=== PATIENT | male | born 1965 | race Caucasian/White ===

== ENCOUNTER 2018-02-09 16:18 | Emergency (ER) | payer MEDICAID ==
[2018-02-09 16:30] VITALS: O2SAT 99
[2018-02-09 17:03] LABS: BASO # 0.1 K/uL (0.0-0.2); BASO % 0.8 % (0.0-2.0); EOS # 0.3 K/uL (0.0-0.7); EOS % 3.7 % (0.0-4.0); HEMOGLOBIN 14.5 g/dL (12.0-18.0); LYMPH % 21.8 % (20.0-40.0); MEAN CORPUSCULAR HEMOGLOBIN 31.7 pg (27.0-31.0); MEAN CORPUSCULAR HGB CONC 34.8 g/dL (33.0-37.0); MEAN PLATELET VOLUME 8.7 fL (7.2-11.7); MONO # 0.6 K/uL (0.0-0.8); NEUT # 6.3 K/uL (1.8-7.0); NEUT % 67.7 % (50.0-75.0); RBC 4.58 Mil/uL (4.40-5.90); RED CELL DISTRIBUTION WIDTH 12.9 % (11.5-14.5); WHITE BLOOD COUNT 9.3 K/uL (4.8-10.8)
[2018-02-09 17:10] LABS: URINE BILIRUBIN NEGATIVE (NEGATIVE); URINE BLOOD NEGATIVE (NEGATIVE); URINE CLARITY Clear (Clear); URINE COLOR Yellow (YELLOW); URINE GLUCOSE (UA) NORMAL (Normal); URINE LEUKOCYTE ESTERASE NEG Leu/uL (Negative); URINE PROTEIN NEGATIVE (NEGATIVE); URINE UROBILINOGEN NORMAL mg/dL (0.2-1.0)
[2018-02-09 17:18] LABS: ALB/GLOB RATIO 1.4 (1.0-2.1); ALBUMIN 4.3 g/dL (3.5-5.0); ALT/SGPT 20 U/L (21-72); AST/SGOT 27 U/L (17-59); BLOOD UREA NITROGEN 23 mg/dL (9-20); CALCIUM 9.1 mg/dl (8.6-10.4); GFR NON-AFRICAN AMERICAN > 60
[2018-02-09 17:27] LABS: BARBITURATES, UR NEGATIVE (NEGATIVE); BENZODIAZEPINES, UR POSITIVE (NEGATIVE); OPIATES, UR NEGATIVE (NEGATIVE); PHENCYCLIDINE, UR NEGATIVE (NEGATIVE)
--- NOTE | 2018-02-09 17:51 | C.PDOC ---
History Of Present Illness Patient presents to ED requesting alcohol detox. He states his last drink was yesterday, is a daily drinker typically with meals. He denies drug use, SI/HI or physical complaints at this time. Time Seen by Provider: 02/09/18 16:31 Chief Complaint (Nursing): Substance Abuse History Per: Patient History/Exam Limitations: no limitations Onset/Duration Of Symptoms: Persistent Severity: Mild Past Medical History Reviewed: Historical Data, Nursing Documentation, Vital Signs Vital Signs: Last Vital Signs Temp 98.5 F 02/09/18 16:27 Pulse 67 02/09/18 16:27 Resp 19 02/09/18 16:27 BP 122/78 02/09/18 16:27 Pulse Ox 99 02/09/18 16:27 - Medical History PMH: Anxiety, Depression, HTN Family History: States: No Known Family Hx - Social History Hx Alcohol Use: Yes Hx Substance Use: No - Immunization History Hx Tetanus Toxoid Vaccination: No Hx Influenza Vaccination: Yes Hx Pneumococcal Vaccination: No Review Of Systems Except As Marked, All Systems Reviewed And Found Negative. Constitutional: Negative for: Fever Cardiovascular: Negative for: Chest Pain, Orthopnea Respiratory: Negative for: Shortness of Breath Gastrointestinal: Negative for: Nausea, Vomiting, Abdominal Pain, Diarrhea Psych: Positive for: Other (alcohol dependence). Negative for: Psychosis, Suicidal ideation, Withdrawal Physical Exam - Physical Exam Appears: Well, Non-toxic, No Acute Distress Skin: Normal Color, Warm, Dry Head: Atraumatic, Normacephalic Eye(s): bilateral: Normal Inspection, PERRL, EOMI Oral Mucosa: Moist Cardiovascular: Rhythm Regular Respiratory: Normal Breath Sounds, No Rales, No Rhonchi, No Wheezing Gastrointestinal/Abdominal: Normal Exam, Bowel Sounds, Soft, No Tenderness Extremity: Normal ROM, No Deformity Extremity: Bilateral: Atraumatic, Normal Color And Temperature, Normal ROM Neurological/Psych: Oriented x3, Normal Speech, Normal Cognition, Other (no tremors) ED Course And Treatment - Laboratory Results Result Diagrams: 02/09/18 16:56 02/09/18 16:56 O2 Sat by Pulse Oximetry: 99 (RA) Pulse Ox Interpretation: Normal Progress Note: Blood work, UA, UDS ordered and reviewed. 5:45pm- Patient medically cleared. 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 Patient instructed to follow up outpatient as indicated by crisis. He understa nds he should return to ED if he has any concerning symptoms.) Disposition Counseled Patient/Family Regarding: Studies Performed, Diagnosis, Need For Followup - Disposition Referrals: [facility] [Outside] Disposition: HOME/ ROUTINE Disposition Time: 18:15 Condition: STABLE Instructions: Alcohol Abuse and Alcoholism (DC) Forms: [employer] (Slovak) Print Language: FAROESE - Clinical Impression Clinical Impression: Alcohol abuse
[2018-02-09 18:29] VITALS: BP 120/77; PULSE 68; RESP 18; TEMP 98.4
== END 2018-02-09 18:28 | disposition home or self-care (01) ==
LOC: C.ER 16:18
DX: F10.10 Alcohol abuse, uncomplicated (principal); Y90.9 Presence of alcohol in blood, level not specified

== ENCOUNTER 2018-03-13 15:11 | Inpatient (IN) | payer MEDICAID ==
[2018-03-13 15:29] VITALS: BMI 23.3
[2018-03-13 16:22] LABS: BASO % 0.7 % (0.0-2.0); EOS # 0.1 K/uL (0.0-0.7); EOS % 1.6 % (0.0-4.0); HEMOGLOBIN 14.1 g/dL (12.0-18.0); LYMPH # 1.8 K/uL (1.0-4.3); LYMPH % 25.9 % (20.0-40.0); MEAN CORPUSCULAR HEMOGLOBIN 30.6 pg (27.0-31.0); MEAN CORPUSCULAR HGB CONC 34.5 g/dL (33.0-37.0); MEAN PLATELET VOLUME 8.9 fL (7.2-11.7); MONO # 0.4 K/uL (0.0-0.8); NEUT # 4.7 K/uL (1.8-7.0); NEUT % 66.8 % (50.0-75.0); NRBC % 0.1 % (0.0-2.0); RBC 4.62 Mil/uL (4.40-5.90); RED CELL DISTRIBUTION WIDTH 13.4 % (11.5-14.5)
--- NOTE | 2018-03-13 16:24 | C.PDOC ---
History Of Present Illness 52 y/o male presents to ED requesting detox from ETOH. Patient states last drink was yesterday and admits to smoking cigarette 3 daily. Patient denies other substance abuse, SI/HI, hallucinations or any other complaints at this time. Time Seen by Provider: 03/13/18 16:07 Chief Complaint (Nursing): Substance Abuse History Per: Patient History/Exam Limitations: no limitations Onset/Duration Of Symptoms: Days Current Symptoms Are (Timing): Still Present Suicide/Self Injury Attempted (Context): None Modifying Factor(s): Alcohol Past Medical History Reviewed: Historical Data, Nursing Documentation, Vital Signs Vital Signs: Last Vital Signs Temp 98 F 03/13/18 15:29 Pulse 89 03/13/18 15:29 Resp 18 03/13/18 15:29 BP 145/88 03/13/18 15:29 Pulse Ox 99 03/13/18 15:29 - Medical History PMH: Anxiety, Depression, HTN Surgical History: No Surg Hx Family History: States: No Known Family Hx - Social History Hx Alcohol Use: Yes Hx Substance Use: No - Immunization History Hx Tetanus Toxoid Vaccination: No Hx Influenza Vaccination: Yes Hx Pneumococcal Vaccination: Yes Review Of Systems Constitutional: Negative for: Fever, Chills Cardiovascular: Negative for: Chest Pain Respiratory: Negative for: Cough, Shortness of Breath Gastrointestinal: Negative for: Nausea, Vomiting Psych: Positive for: Other (substance abuse). Negative for: Suicidal ideation Physical Exam - Physical Exam Appears: Non-toxic, No Acute Distress, Other (Mild tremors to hands) Skin: Warm, Dry, No Rash Head: Atraumatic, Normacephalic Eye(s): bilateral: Normal Inspection Oral Mucosa: Moist Neck: Normal ROM, Supple Cardiovascular: Rhythm Regular Respiratory: Normal Breath Sounds, No Rales, No Rhonchi, No Wheezing Gastrointestinal/Abdominal: Soft, No Tenderness, No Guarding, No Rebound Neurological/Psych: Oriented x3, Normal Speech, Normal Cognition ED Course And Treatment - Laboratory Results Result Diagrams: 03/13/18 16:19 03/13/18 16:19 O2 Sat by Pulse Oximetry: 99 (RA) Pulse Ox Interpretation: Normal Medical Decision Making Medical Decision Making: Patient requesting detox from alcohol Labs ordered for medical clearance Labs reviewed with no acute findings. In my clinical judgment patient is medically cleared and stable for admission. PES contacted for evaluation. 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 - Scribe Statement The provider has reviewed the documentation as recorded by the Artemioibe Jaciel Mercer All medical record entries made by the Artemioibnoel were at my direction and personally dictated by me. I have reviewed the chart and agree that the record accurately reflects my personal performance of the history, physical exam, medical decision making, and the department course for this patient. I have also personally directed, reviewed, and agree with the discharge instructions and disposition. Decision To Admit - Pt Status Changed To: Hospital Disposition Of: Inpatient - Admit Certification Admit to Inpatient:: After my assessment, the patient will require hospitalization for at least two midnights. This is because of the severity of symptoms shown, intensity of services needed, and/or the medical risk in this patient being treated as an outpatient. - InPatient: Physician Admission Certification: I certify that this patient requires 2 or more midnights of care for the following reason:: Patient with alcohol use disorder severe and will need detox inpatient - . Bed Request Type: Detox Admitting Physician: Blaine Mansfield Patient Diagnosis: Alcohol abuse
[2018-03-13 16:30] LABS: MEAN CELL VOLUME 88.6 fL (80.0-94.0)
[2018-03-13 16:33] LABS: SQUAMOUS EPITHIAL < 1 /hpf (0-5); URINE BILIRUBIN NEGATIVE (NEGATIVE); URINE BLOOD NEGATIVE (NEGATIVE); URINE CLARITY Clear (Clear); URINE COLOR Yellow (YELLOW); URINE GLUCOSE (UA) NORMAL (Normal); URINE LEUKOCYTE ESTERASE NEG Leu/uL (Negative); URINE PROTEIN NEGATIVE (NEGATIVE)
[2018-03-13 16:49] LABS: ALB/GLOB RATIO 1.5 (1.0-2.1); ALBUMIN 4.4 g/dL (3.5-5.0); ALT/SGPT 19 U/L (21-72); AST/SGOT 20 U/L (17-59); BLOOD UREA NITROGEN 10 mg/dL (9-20); GFR NON-AFRICAN AMERICAN > 60
[2018-03-13 16:59] LABS: BARBITURATES, UR NEGATIVE (NEGATIVE); OPIATES, UR NEGATIVE (NEGATIVE); PHENCYCLIDINE, UR NEGATIVE (NEGATIVE)
[2018-03-13 17:01] LABS: BENZODIAZEPINES, UR POSITIVE (NEGATIVE)
--- NOTE | 2018-03-13 21:09 | PCM.BM ---
<Wanda Bernal - Last Filed: 03/13/18 21:08> Treatment Plan Problems - Problems identified on initial assessmt Potential for alcohol withdrawal Date Initiated: 03/13/18 Time Initiated: 21:08 Assessment reference: NA Status: Active Treatment assets and liabiliti Patient Assests: cooperative, ADL independent, negotiates basic needs, cognitively intact Patient Liabilities: substance abuse (Alcohol), other (homelessness) <Elham Todd - Last Filed: 03/14/18 11:03> Family Contact Family involvement: No known Family/SO - Goals for Treatment Patient goals for treatment: Complete detox and transition to partial care program with residential component. Discharge/Continuing Care - Education Needs Education Needs: Patient Medication, Patient Diagnosis/Disease Process, Patient Coping Skills, Patient Anger Management skills, Patient Placement options, Patient Community resources - Discharge Discharge Criteria: No longer exhibiting s/s of withdrawal, Reduction of target symptoms Discharge to:: Penitentiary - Treatment Team Participation Patient/Family/SO Statement: 03/14/18 11:03 "I wanna go back to the residential at [facility]. They take good care of me there." Discussed with Family/SO: No Was Patient/Family/SO present at Treatment Team Meeting: Yes <Connor Coffey - Last Filed: 03/18/18 09:08> - Diagnosis (1) Alcohol abuse Status: Acute Interventions: 03/15/18 09:07 * Assess 7x/week regarding severity of withdrawal * Educate regarding risks, benefits, side effects and alternatives of medications * Use Motivational Interviewing for abstinence * Use CBT for relapse prevention * Medication management for withdrawal symptoms * Encourage medication assisted treatment *
[2018-03-14] MEDS: Multiple Vitamins Tab PO SCH (09:42)
--- NOTE | 2018-03-14 14:05 | PCM.PSYCH ---
Initial Psychiatric Evaluation - Initial Psychiatric Evaluation Type of Admission: Voluntary Legal Status: Capacity Chief Complaint (in patient's own words): "Need detox" History of Present Illness and Precipitating Events: Patient seen, chart reviewed, cast discussed The patient is a 52-year-old single unemployed male with a child in the mid 20s. The patient currently lives in a intermediate and hasnt worked for 4-5 years and is on welfare. The patient had his first drink at age 12, but it has only become a problem for him in the last 4 years. The patient drinks a pint of vodka per day. When the patient does not drink, he gets the shakes and almost DT-like symptoms, and his longest period of sobriety was a couple months. The patient denies any heroin, cocaine, marijuana or other drug use, and smokes 3 cigarettes a day for about 10 years. The patient went to an inpatient detox and rehab program once before in the late 80s or early 90s. The patient does not attend AA meetings but states that he is in a program with group and individual therapy. The patients father and brother have a history of alcohol abuse. The patient states that he is being treated for depression and anxiety with Sertraline, but denies any current suicidal ideation. Past Psych History: Depression, anxiety Past Medical History: HTN Family Psych History: denies Current Medications: Active Medications Generic Name Dose Route Start Last Admin Trade Name Freq PRN Reason Stop Dose Admin Chlordiazepoxide 25 mg 03/13/18 19:31 03/13/18 21:24 Librium PO 25 mg Q6 PRN Administration alcohol withdrawal Chlordiazepoxide 25 mg 03/14/18 12:00 03/14/18 11:24 Librium PO 03/19/18 11:59 25 mg Q6 NOE Administration Taper Clonidine HCl 0.1 mg 03/13/18 22:30 Catapres PO Q4H PRN Symptoms of alcohol withdrawl Folic Acid 1 mg 03/14/18 10:00 03/14/18 09:42 Folic Acid PO 1 mg DAILY NOE Administration Gabapentin 300 mg 03/14/18 10:00 03/14/18 13:40 Neurontin PO 300 mg TID NOE Administration Hydrochlorothiazide 12.5 mg 03/14/18 10:30 03/14/18 11:21 Microzide PO 12.5 mg DAILY NOE Administration Hydroxyzine HCl 25 mg 03/13/18 19:32 03/13/18 21:24 Atarax PO 25 mg Q6 PRN Administration Anxiety Ibuprofen 400 mg 03/13/18 22:31 Motrin Tab PO Q6 PRN Pain, moderate (4-7) Metoprolol Tartrate 50 mg 03/14/18 10:30 03/14/18 11:20 Lopressor PO 50 mg BID NOE Administration Multivitamins 1 tab 03/14/18 10:00 03/14/18 09:42 Hexavitamin PO 1 tab DAILY NOE Administration Naltrexone HCl 50 mg 03/14/18 10:45 03/14/18 11:21 Revia PO 50 mg DAILY NOE Administration Thiamine HCl 100 mg 03/14/18 10:00 03/14/18 09:43 Vitamin B1 Tab PO 100 mg DAILY NOE Administration Trazodone HCl 50 mg 03/13/18 21:23 03/13/18 21:54 Desyrel PO 50 mg HS PRN Administration Insomnia Past Psychiatric History - Past Psychiatric History Previous Treatment History: Intensive Outpatient Pertinent Medical Hx (Current Medical&Sleep Prob, Allergies): Allergies Allergy/AdvReac Type Severity Reaction Status Date / Time No Known Allergies Allergy Verified 03/13/18 15:28 Ibuprofen [Motrin Tab] 600 tab PO Q8 PRN 03/13/18 Metoprolol Godinez/Hydrochlorothiaz [Metoprolol ER-Hctz 50-12.5 mg] 50 tab PO DAILY 03/13/18 Omeprazole 20 mg PO DAILY 03/13/18 Zolpidem [Ambien] 5 tab PO HS 03/13/18 chlordiazePOXIDE [Chlordiazepoxide HCl] 50 mg PO DAILY 03/13/18 hydrOXYzine HCl [Atarax] 50 mg PO HS 03/13/18 Review of Systems - Neurological Neurological: Tremor - Psychiatric Psychiatric: Abnormal Sleep Pattern, Anhedonia, Anxiety, Depression, Difficulty Concentrating. absent: Hallucinations, Homicidal Ideation, Mood Swings, Paranoia, Suicidal Ideation Mental Status Examination - Personal Presentation Personal Presentation: Looks stated age - Affect Affect: Constricted - Motor Activity Motor Activity: Calm - Reliability in Providing Information Reliability in Providing Information: Good - Speech Speech: Organized - Mood Mood: Depressed, Anxious - Formal Thought Process Formal Thought Process: No Impairment - Cognitive Functions Orientation: Person, Place, Situation, Time Sensorium: Alert Attention/Concentration: Attentive Estimate of Intelligence: Average Judgement: Intact, as evidence by: Insight regarding need for hospitalization Memory: Recent intact, as evidence by: Ability to recall events of the day, Remote intact, as evidenced by: Abilit to recall sig. life events - Risk Risk: Withdrawal, Diminished functioning - Strength & Assets Inventory Strength & Assets Inventory: Cooperative - Limitations Limitations: Living alone DSM 5 DX - DSM 5 DSM 5 Diagnosis: Alcohol withdrawal Alcohol use d/osevere Major Depression recurrent, moderate Generalized Anxiety d/o - Recommended/Plan of Treatment Treatment Recommendations and Plan of Treatment: Taper with Librium Gabapentin for augmentation if needed Naltrexone for cravings Zoloft for depression and MARINA As needed medication All risks, benefits and alternatives of the meds discussed and the patient agreed and understood Attend groups and activities Supportive therapy and psychoeducation DC for abstinence CBT for relapse prevention Encourage MAT Refer to rehab or IOP, and self-help groups Teach healthy lifestyle methods, i.e. diet, exercise, meditation Smoking cessation with DC Nicotine patch if needed 34 min Projected ELOS: 4-5 days - Smoking Cessation Smoking Cessation Initiated: Yes
[2018-03-15] MEDS: Multiple Vitamins Tab PO SCH (10:02)
[2018-03-16] MEDS: Multiple Vitamins Tab PO SCH (09:54)
--- NOTE | 2018-03-17 08:15 | PCM.PYCHPN ---
Psychiatric Progress Note - Psychiatric Progress Note Patient seen today, length of contact: 15 min Patient Chief Complaint: Feeling little better.' Problems Identified/Issues Discussed: Patient was seen and evaluated, chart reviewed and discussed with the staff. Patient reports some improvement the withdrawal symptoms but still reports sweating and headaches. He remained isolated and withdrawn, however he denies any feelings of hopelessness and helplessness. He denies any suicidal ideation or homicidal ideation. He denies any auditory hallucinations or any paranoia. He is taking medication denies any side effects. Symptoms are improving but he needs to stay longer for further stabilization. Supportive therapy was given Medication Change: Yes Medical Record Reviewed: Yes Mental Status Examination - Cognitive Function Orientation: Person, Place, Situation, Time Memory: Intact Attention: WNL Concentration: Poor Association: WNL Fund of Knowledge: Poor - Mood Mood: Depressed, Anxious - Affect Affect: Constricted - Speech Speech: Soft - Formal Thought Process Formal Thought Process: No Impairment - Suicidal Ideation Suicidal Ideation: No - Homicidal Ideation Homicidal Ideation: No Goal/Treatment Plan - Goal/Treatment Plan Need for Continued Stay: Discharge may exacerbated symptoms Progress Toward Problem(s) and Goals/Treatment Plan: Alcohol withdrawal Alcohol use d/osevere Major Depression recurrent, moderate Generalized Anxiety d/o Taper with Librium Gabapentin for augmentation if needed Naltrexone for cravings Zoloft for depression and MARINA As needed medication All risks, benefits and alternatives of the meds discussed and the patient agreed and understood Attend groups and activities Supportive therapy and psychoeducation SD for abstinence CBT for relapse prevention Encourage MAT Refer to rehab or IOP, and self-help groups Teach healthy lifestyle methods, i.e. diet, exercise, meditation Smoking cessation with SD Nicotine patch if needed
[2018-03-17] MEDS: Multiple Vitamins Tab PO SCH (09:33)
--- NOTE | 2018-03-18 09:09 | PCM.PYCHPN ---
Psychiatric Progress Note - Psychiatric Progress Note Patient seen today, length of contact: 15 min Patient Chief Complaint: "Not well" Problems Identified/Issues Discussed: The pt is seen, chart reviewed, case discussed with staff. The pt is compliant with medications and reports no side-effects. Symptoms are improving but needs more time to stabilize. Pt attends groups and activities. Support given, psycho-education provided. After care discussed. Medication Change: Yes (detox changes daily) Medical Record Reviewed: Yes Mental Status Examination - Cognitive Function Orientation: Person, Place, Situation, Time Memory: Intact Attention: WNL Concentration: Poor Association: WNL Fund of Knowledge: WNL - Mood Mood: Depressed, Anxious - Affect Affect: Constricted - Speech Speech: Appropriate - Formal Thought Process Formal Thought Process: No Impairment - Suicidal Ideation Suicidal Ideation: No - Homicidal Ideation Homicidal Ideation: No Goal/Treatment Plan - Goal/Treatment Plan Need for Continued Stay: Discharge may exacerbated symptoms, Severe functional impairment Progress Toward Problem(s) and Goals/Treatment Plan: Taper with Librium Gabapentin for augmentation if needed Naltrexone for cravings Zoloft for depression and MARINA As needed medication All risks, benefits and alternatives of the meds discussed and the patient agreed and understood Attend groups and activities Supportive therapy and psychoeducation NV for abstinence CBT for relapse prevention Encourage MAT Refer to rehab or IOP, and self-help groups Teach healthy lifestyle methods, i.e. diet, exercise, meditation Smoking cessation with NV Nicotine patch if needed Estimated Date of D/C: 03/18/18
--- NOTE | 2018-03-18 09:10 | PCM.PYCHPN ---
Psychiatric Progress Note - Psychiatric Progress Note Patient seen today, length of contact: 15 min Patient Chief Complaint: "Not well" Problems Identified/Issues Discussed: The pt is seen, chart reviewed, case discussed with staff. The pt is compliant with medications and reports no side-effects. Symptoms are improving but needs more time to stabilize. Pt attends groups and activities. Support given, psycho-education provided. After care discussed. Medication Change: Yes (detox changes daily) Medical Record Reviewed: Yes Mental Status Examination - Cognitive Function Orientation: Person, Place, Situation, Time Memory: Intact Attention: WNL Concentration: Poor Association: WNL Fund of Knowledge: WNL - Mood Mood: Depressed, Anxious - Affect Affect: Constricted - Speech Speech: Appropriate - Formal Thought Process Formal Thought Process: No Impairment - Suicidal Ideation Suicidal Ideation: No - Homicidal Ideation Homicidal Ideation: No Goal/Treatment Plan - Goal/Treatment Plan Need for Continued Stay: Discharge may exacerbated symptoms, Severe functional impairment Progress Toward Problem(s) and Goals/Treatment Plan: Taper with Librium Gabapentin for augmentation if needed Naltrexone for cravings Zoloft for depression and MARNIA As needed medication All risks, benefits and alternatives of the meds discussed and the patient agreed and understood Attend groups and activities Supportive therapy and psychoeducation ND for abstinence CBT for relapse prevention Encourage MAT Refer to rehab or IOP, and self-help groups Teach healthy lifestyle methods, i.e. diet, exercise, meditation Smoking cessation with ND Nicotine patch if needed Estimated Date of D/C: 03/18/18
[2018-03-18] MEDS: Multiple Vitamins Tab PO SCH (10:02)
--- NOTE | 2018-03-19 08:46 | PCM.PYCHDC ---
Mental Status Examination - Mental Status Examination Orientation: Person Discharge Summary - Discharge Note Consultations:: List each consultation separately and include: 1. Reason for request. 2. Findings. 3. Follow-up Summary of Hospital Course include:: 1. Description of specific treatment plan utilized for patients during their course of treatmen. 2. Summarize the time- course for resolution of acute symptoms and/or regressed behaviors. 3. Describe issues identified and worked on during hospitalization. 4. Describe medication utilized. 5. Describe medical problems identified and treated. 6. Reassessment of suicide risk Summary of Hospital Course: Patient seen, chart reviewed, cast discussed The patient is a 52-year-old single unemployed [place] male with a child in the mid 20s. The patient currently lives in a half-way and hasnt worked for 4-5 years and is on welfare. The patient had his first drink at age 12, but it has only become a problem for him in the last 4 years. The patient drinks a pint of vodka per day. When the patient does not drink, he gets the shakes and almost DT-like symptoms, and his longest period of sobriety was a couple months. The patient denies any heroin, cocaine, marijuana or other drug use, and smokes 3 cigarettes a day for about 10 years. The patient went to an inpatient detox and rehab program once before in the late 80s or early 90s. The patient does not attend AA meetings but states that he is in a program with group and individual therapy. The patients father and brother have a history of alcohol abuse. The patient states that he is being treated for depression and anxiety with Sertraline, but denies any current suicidal ideation. Past Psych History: Depression, anxiety Past Medical History: HTN Family Psych History: denies The pt will go to [facility] and half-way. - Diagnosis (1) Alcohol abuse Current Visit: Yes Status: Acute - Final Diagnosis (DSM 5) Condition upon Discharge: STABLE Disposition: HOME/ ROUTINE Follow-up Treatment Plan: Taper with Librium Gabapentin for augmentation if needed Naltrexone for cravings Zoloft for depression and MARINA As needed medication All risks, benefits and alternatives of the meds discussed and the patient agreed and understood Attend groups and activities Supportive therapy and psychoeducation [place] for abstinence CBT for relapse prevention Encourage MAT Refer to rehab or IOP, and self-help groups Teach healthy lifestyle methods, i.e. diet, exercise, meditation Smoking cessation with [place] Nicotine patch if needed Prescriptions/Medication Reconciliation: Gabapentin [Neurontin] 300 mg PO TID #60 cap Metoprolol Godinez/Hydrochlorothiaz [Metoprolol ER-Hctz 50-12.5 mg] 50 tab PO DAILY #30 tab.er.24h Naltrexone [Revia] 50 mg PO DAILY #30 tab Sertraline [Zoloft] 50 mg PO DAILY #30 tab traZODone [Desyrel] 50 mg PO HS PRN #30 tab PRN Reason: Insomnia
[2018-03-19] MEDS: Multiple Vitamins Tab PO SCH (09:35)
[2018-03-19 11:35] VITALS: BP 107/78; PULSE 67; RESP 18; TEMP 97.9; O2SAT 97
== END 2018-03-19 11:40 | disposition home or self-care (01) | DRG 750 ==
LOC: C.ER 15:11 → C.7D 18:46
PROC: HZ2ZZZZ Detoxification Services for Substance Abuse Treatment (ICD-10-PCS; principal; 2018-03-13)
PROC: GZ3ZZZZ Medication Management (ICD-10-PCS; 2018-03-13)
PROC: HZ80ZZZ Medication Management for Substance Abuse Treatment, Nicotine Replacement (ICD-10-PCS; 2018-03-13)
PROC: HZ46ZZZ Group Counseling for Substance Abuse Treatment, Psychoeducation (ICD-10-PCS; 2018-03-13)
PROC: HZ59ZZZ Individual Psychotherapy for Substance Abuse Treatment, Supportive (ICD-10-PCS; 2018-03-13)
DX: F10.230 Alcohol dependence with withdrawal, uncomplicated (principal); F33.1 Major depressive disorder, recurrent, moderate; F41.1 Generalized anxiety disorder; F17.210 Nicotine dependence, cigarettes, uncomplicated; I10 Essential (primary) hypertension